=== PATIENT | female | born 1980 | race Caucasian/White ===

== ENCOUNTER 2019-04-08 08:42 | Emergency (ER) | payer BC, SELFPAY ==
[2019-04-08 08:43] VITALS: PULSE 71; RESP 20; TEMP 36.6; O2SAT 100; BMI 28.1
[2019-04-08 08:50] VITALS: BP 132/66; PULSE 67; RESP 16; O2SAT 100
--- NOTE | 2019-04-08 08:53 | EKG12_ITS ---
Test Reason : CP Blood Pressure : / mmHG Vent. Rate : 065 BPM Atrial Rate : 065 BPM P-R Int : 152 ms QRS Dur : 070 ms QT Int : 400 ms P-R-T Axes : 054 050 040 degrees QTc Int : 416 ms Normal sinus rhythm with sinus arrhythmia Normal ECG Confirmed by SIMON SAINI ([id number]), editor city KAYCE CORDERO ([id number]) on 04/13/2019 1:12:29 PM Referred By: MUKESH Confirmed By:SIMON SAINI
--- NOTE | 2019-04-08 08:54 | ED.DCSUM_ITS ---
History of Present Illness Chief Complaint: Chest Pain Informant: Patient Onset: Weeks Timing: Waxes and wanes Current Severity: Moderate Maximum Severity: Moderate Narrative: Patient presents with a several week history of back pain. She states she has pain just medial to her left scapula that wraps up to her left shoulder. Over the past couple of days pain has now progressed down into the left anterior chest. She describes a pressure sensation in her chest. She does have some associated shortness of breath. No cough or recent URI symptoms. No personal or family history of cardiac disease. She does report that she does CrossFit but does not remember specific injury. Past Medical History - Allergies and Home Meds Allergies/Adverse Reactions: Allergies nickel Allergy (Verified 04/08/19 08:49) Rash Primary Care Physician: Kerwin Sandhu MD [STAFF PHYSICIAN] - As soon as possible Prior records reviewed: Yes Past Medical History: - - Reviewed Smoking Status: Former smoker Review of Systems General: Denies: Chills, Fever Eyes: Denies: Visual changes - bilaterally ENT: Denies: Bilateral ear pain Cardiovascular: Reports: Chest pain. Denies: Palpitations, Heart racing Respiratory: Reports: Dyspnea. Denies: Cough Gastrointestinal: Denies: Abdominal pain, Nausea, Vomiting Genitourinary: Denies: Dysuria Musculoskeletal: Reports: Back pain Skin: Denies: Rash Neurological: Denies: Headache, Parasthesia Hematologic: Denies: Easy bruising Allergy: Denies: Uticaria Physical Exam Vital Signs/Narrative: Vital Signs Temp Pulse Resp BP Pulse Ox 04/08/19 08:50 67 16 132/66 H 100 04/08/19 08:43 97.9 F 71 20 H 100 Inital Vital Signs reviewed: Yes General: Well nourished, Well developed Head: Normocephalic ENT: Moist mucous membranes Neck: Supple, Nontender Cardiovascular: Regular rate, Regular rhythm Respiratory: No distress, CTA bilaterally, Chest nontender Abdomen: Soft, Nontender Back: - - Mild tenderness in the left upper thoracic paraspinals. Extremities: Nontender, No edema Skin: Normal color, No rash Neurological: Alert, Oriented x3 Psychological: Normal affect Diagnostic/Tx/Re-eval Impressions Chest X-Ray 04/08/19 08:55 IMPRESSION: Normal x-ray examination of the chest. Electronically Signed: Jean Marie Becerra, at 9:11 EDT , Service support , 04/08/19 08:55 Chest 1 View (Portable) [RAD] Stat Laboratory Results 04/08/19 04/08/19 04/08/19 08:59 08:59 08:59 WBC 7.1 RBC 5.08 Hgb 13.4 Hct 41.8 MCV 82.3 MCH 26.4 L MCHC 32.1 RDW Std Deviation 39.9 RDW Coeff of Crow 13.4 Plt Count 258 MPV 10.5 Immature Gran % (Auto) 0.300 Neut % (Auto) 55.9 Lymph % (Auto) 33.2 Treasure % (Auto) 8.6 Eos % (Auto) 1.4 Baso % (Auto) 0.6 Absolute Neuts (auto) 4.0 Absolute Lymphs (auto) 2.37 Nucleated RBC % 0 D-Dimer Quant (PE/DVT) Cancelled Sodium 142 Potassium 4.1 Chloride 109 H Carbon Dioxide 26.0 Anion Gap 7 BUN 14 Creatinine 0.74 Estim Creat Clear Calc 101.22 Est GFR (MDRD) Af Amer 113 Est GFR (MDRD) Non-Af 94 BUN/Creatinine Ratio 18.9 Glucose 79 Calcium 9.0 Troponin I < 0.015 Serum , Qual 04/08/19 04/08/19 08:59 09:17 WBC RBC Hgb Hct MCV MCH MCHC RDW Std Deviation RDW Coeff of Rcow Plt Count MPV Immature Gran % (Auto) Neut % (Auto) Lymph % (Auto) [place] % (Auto) Eos % (Auto) Baso % (Auto) Absolute Neuts (auto) Absolute Lymphs (auto) Nucleated RBC % D-Dimer Quant (PE/DVT) < 0.27 L Sodium Potassium Chloride Carbon Dioxide Anion Gap BUN Creatinine Estim Creat Clear Calc Est GFR (MDRD) Af Amer Est GFR (MDRD) Non-Af BUN/Creatinine Ratio Glucose Calcium Troponin I Serum , Qual NEGATIVE - EKG Initial EKG Interpretation: Sinus Rhythm - Sinus at 65 with no acute ischemia. - Medical Decision Making Patient was given aspirin on arrival. EKG and blood work are unremarkable. Chest x-ray is normal. Test results are discussed with the patient. My suspicion is that she has spasm and strain to the left thoracic paraspinal muscles. Over the last several days this has moved to more superior levels, now catching the nerves that are wrapping around her shoulder and onto her chest. She will be treated with naproxen and Flexeril. Patient also states that she has had increased anxiety recently. She states this is been an ongoing issue. She believes she may need to be started on Lexapro or some similar medication. I advised her that this typically needs to be started by her primary care physician as it does take quite a while to start working and she may have some labs that need to be monitored. She will be given a few tabs of Ativan to use as needed for anxiety until she can be seen. She is referred to Dr. Sandhu to establish primary care. ED Disposition - Plan for ED Patient: Disposition: Home or Assisted Living Diagnosis: Atypical chest pain, Upper back strain Instructions: CHEST PAIN, NonCardiac, Back Sprain/Strain, Anxiety Reaction Prescriptions: Lorazepam [Ativan] 0.5 mg PO TID PRN #10 tablet PRN Reason: Anxiety cycloBENZAPRine HCl [Flexeril] 10 mg PO TID PRN #20 tab PRN Reason: Muscle Spasm Prescription Printed Naproxen [Naprosyn] 500 mg PO BID PRN PRN #20 tab PRN Reason: Pain Score 1-10/10 Prescription Printed Referrals: Kerwin Sandhu MD [STAFF PHYSICIAN] - As soon as possible
--- NOTE | 2019-04-08 08:55 | RAD_ITS ---
STUDY: X-RAY CHEST REASON FOR EXAM: Female, 38 years old. Chest pressure. TECHNIQUE: Single AP portable view of the chest. COMPARISON: None. FINDINGS: EKG electrodes are seen. The lungs are clear and expanded. There is no demonstrated pleural abnormality. Normal size heart. Normal mediastinum and lisa. Normal visualized pulmonary arteries. Normal visualized aortic arch and descending thoracic aorta. Normal visualized thoracic spine. Normal visualized ribs, clavicles, and shoulders. There is no demonstrated abnormality of the visualized soft tissue structures of the upper abdomen. RAD/Chest 1 View (Portable) IMPRESSION: Normal x-ray examination of the chest. Electronically Signed: Jean Marie Becerra, at 9:11 EDT , Service support ,
[2019-04-08 09:06] LABS: Absolute Lymphocyte Count 2.37 X10^3/uL (0.83-4.51); Basophil# 0.04 X10^3/uL; Basophil% 0.6 % (0-1); Eosinophils% 1.4 % (0-5); Hematocrit 41.8 % (37-47); Hemoglobin 13.4 g/dL (12.0-15.0); Lymphocyte # 2.37 X10^3/ul (4.0); Lymphocyte % 33.2 % (19-41); Mean Corp Hgb Conc 32.1 g/dL (32-36); Mean Corpuscular Hgb 26.4 pg (27.0-32.0); Mean Corpuscular Volume 82.3 fL (81-99); Mean Platelet Vol. 10.5 fl (6.2-12.0); Monocyte# 0.61 X10^3/uL; Monocyte% 8.6 % (0-10); NRBC Flagged by Analyzer 0 % (0-5); Neutrophil # 3.99 X10^3/uL (2.7-7.7); Neutrophil % 55.9 % (47-70); Platelet Count 258 K/mm3 (150-450); RBC Distribution Width CV 13.4 % (11.6-14.6); RBC Distribution Width SD 39.9 fl (35.1-43.9); Red Blood Count 5.08 M/mm3 (4.2-5.4); White Blood Count 7.1 K/mm3 (4.4-11.0)
[2019-04-08] MEDS: Aspirin 81 MG TAB.CHEW 324 MG PO (09:09)
[2019-04-08] MEDS: 0.9% Normal Saline 1,000 ML 150 ML IV (09:10)
[2019-04-08 09:11] VITALS: O2SAT 98
[2019-04-08 09:26] LABS: Anion Gap 7 (5-15); BUN 14 mg/dL (7-18); BUN/Creat Ratio 18.9 RATIO (10-20); Chloride 109 mmol/L (98-107); Creatinine, Serum 0.74 mg/dL (0.55-1.02); EST Glomerular Filtration Rate 94 mL/min (>60); Est Glom Filt Rate - Afr Amer 113 mL/min (>60); Estimated Creatinine Clearance 101.22 ml/min; Glucose 79 mg/dL (74-106); Potassium 4.1 mmol/L (3.5-5.1); Sodium Level 142 mmol/L (136-145)
[2019-04-08 09:28] LABS: Internal QC Validated? YES +Cl - CLEAR BKGD; Pregnancy, Serum, hCG Quali. NEGATIVE Negative
[2019-04-08 09:34] LABS: D-Dimer Quantitative (DVT/PE) < 0.27 FEU/ug/m (0.27-0.49)
[2019-04-08 10:04] VITALS: BP 113/74; PULSE 62; RESP 15; O2SAT 99
== END 2019-04-08 10:05 | disposition home or self-care (01) ==
PROVIDERS: Emergency Provider Emergency Medicine
DX: R07.89 Other chest pain (principal); S29.012A Strain of muscle and tendon of back wall of thorax, initial encounter; X58.XXXA Exposure to other specified factors, initial encounter; F41.9 Anxiety disorder, unspecified; Z87.891 Personal history of nicotine dependence
CPT/HCPCS: 71045; 80048; 84484; 84703; 85025; 85379; 93005; 99285

== ENCOUNTER → 2020-07-18 15:33 | Outpatient (CLI) | payer BC, SELFPAY | PROVIDERS: PCP Family Medicine; Referring Provider Family Medicine; Visit Provider Family Medicine | DX: B34.9 Viral infection, unspecified (principal) | CPT/HCPCS: 87635; U0005; U0003 ==

== ENCOUNTER → 2020-12-07 10:10 | Outpatient (CLI) | payer BC, SELFPAY ==
--- NOTE | 2020-12-07 10:16 | RAD_ITS ---
STUDY: X-RAY CHEST REASON FOR EXAM: Female, 40 years old. CHEST PRESSURE TECHNIQUE: PA and lateral views of the chest. COMPARISON: Comparison is made with prior examination dated 04/08/2019. FINDINGS: Hyperinflation. The lungs are clear. The lungs are clear and expanded. There is no demonstrated pleural abnormality. Normal size heart. Normal mediastinum and lisa. Normal visualized pulmonary arteries. Normal visualized aortic arch and descending thoracic aorta. Normal visualized thoracic spine. Normal visualized ribs, clavicles, and shoulders. There is no demonstrated abnormality of the visualized soft tissue structures of the upper abdomen. RAD/Chest PA and Lateral IMPRESSION: Hyperinflation. The lungs are clear. Electronically Signed: Jean Marie Becerra MD at 14:12 EDT , Service support ,
[2020-12-07 13:11] LABS: Thyroid Stim Hormone (TSH) 1.02 uIU/mL (0.358-3.74)
== END ==
PROVIDERS: PCP Family Medicine; Referring Provider Family Medicine; Visit Provider Family Medicine
DX: R53.83 Other fatigue (principal); R07.89 Other chest pain
CPT/HCPCS: 36415; 71046; 84443

== ENCOUNTER → 2022-11-28 | Outpatient (CLI) | payer OTHER, SELFPAY ==
[2022-11-28 12:34] LABS: Absolute Lymphocyte Count 1.93 X10^3/uL (0.83-4.51); Absolute Neutrophil Count 3.5 X10^3/uL (2.0-7.7); Basophil# 0.04 X10^3/uL; Basophil% 0.7 % (0-1); Eosinophil# 0.07 X10^3/uL; Eosinophils% 1.2 % (0-5); Hematocrit 42.2 % (37-47); Hemoglobin 13.3 g/dL (12.0-15.0); Lymphocyte # 1.93 X10^3/ul (0.83-4.51); Lymphocyte % 32.3 % (19-41); Mean Corp Hgb Conc 31.5 g/dL (32-36); Mean Corpuscular Hgb 26.7 pg (27.0-32.0); Mean Corpuscular Volume 84.6 fL (81-99); Monocyte# 0.47 X10^3/uL; Monocyte% 7.9 % (0-10); NRBC Flagged by Analyzer 0 % (0-5); Neutrophil # 3.46 X10^3/uL (2.7-7.7); Neutrophil % 57.7 % (47-70); Platelet Count 296 K/mm3 (150-450); RBC Distribution Width CV 12.9 % (11.6-14.6); RBC Distribution Width SD 39.7 fl (35.1-43.9); Red Blood Count 4.99 M/mm3 (4.2-5.4)
[2022-11-28 12:56] LABS: AST(SGOT) 27 U/L (15-37); Alanine Aminotransfer ALT/SGPT 49 U/L (13-56); Albumin, Serum 3.7 g/dL (3.2-5.0); Alkaline Phosphatase 39 U/L (45-117); Anion Gap 6 (5-15); BUN 15 mg/dL (7-18); BUN/Creat Ratio 18.4 RATIO (10-20); Calcium,Total 9.3 mg/dL (8.5-10.1); Chloride 105 mmol/L (98-107); Cholesterol 223 mg/dL (200); Creatinine, Serum 0.82 mg/dL (0.55-1.02); EST Glomerular Filtration Rate 82 mL/min (>60); Est Glom Filt Rate - Afr Amer 99 mL/min (>60); Globulin 3.8 g/dL (2.2-4.2); Glucose 92 mg/dL (74-106); High Density Lipoprotein 60 mg/dL; Protein, Total 7.5 g/dL (6.4-8.2); Sodium Level 137 mmol/L (136-145); Triglycerides 79 mg/dL; Very Low Density Lipoprotein 16 mg/dL (5-40)
== END | disposition home or self-care (01) ==
LOC: BFHLAB 10:04
PROVIDERS: PCP Family Medicine; Referring Provider Family Medicine; Visit Provider Family Medicine
DX: Z00.00 Encounter for general adult medical examination without abnormal findings (principal); J45.20 Mild intermittent asthma, uncomplicated; L40.9 Psoriasis, unspecified
CPT/HCPCS: 36415; 80053; 80061; 85025

== ENCOUNTER 2023-01-29 18:00 | Outpatient (RCR) | payer OTHER, SELFPAY ==
--- NOTE | 2022-12-16 19:20 | HP.PTEVAL ---
Patient's Visit Information KAYCE MARY is a 42 year old F referred to Physical Therapy by Dr. Gabrielle Youssef MD with a diagnosis of LUMBAR PAIN WITH RADIATION TO HIPS. Date of Evaluation: 12/16/22 Physical Therapist: Quan Casanova, PT, Cert MDT, OCS - Visit Plan Frequency: 2x /Week Duration: 4 Weeks Plan: PT INTERVTIONS MAGGIE EX'S ,MANUAL THERAPY ,DLS ,FLEXABLITY AND MODALITIES - Subjective This 42 y/o female presents to physical therapy lumbar radiculopathy. Patient has had intermittent lumbar pain in past ~ 2 years. These symptoms progressively worse past several years. Seen DR recommended PT ,anti-inflammatory. Pain described as ache. Patient has had no diagnostics . Patient pain lumbar radicular left lateral leg. Aggravating bending ,lifting ,sitting ,.Alleviating factors walking ,standing . Coughing/sneezing + Bowel/bladder-. Denies paresthesia/tingling -. Patient has seen chiropractor. Patient does CrossFit. Patient goals to have no pain. SOCAIL : . 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 GAIT: reciprocal pattern. NEURO: denies paresthesia/tingling , reflexes L3-4 ,L4-5,L;5-S1 2/3. PALPATION: unremarkable. LUMBAR ROM: flexion mod loss ,extension min loss ,side glides min loss. FLEXABLITY: hamstrings min loss. MMT: quads/hams 4/5 ,hip flexion 4/5 ,ankle 5/5 - Special Tests L/S Slump test left side: Negative L/S Slump test right side: Negative L/S Left Straight Leg Raise: Positive L/S Right Straight Leg Raise: Negative Lumbar Standing: Flexion - Mechanical Response: No effect Lumbar Standing: Flexion - Symptoms During Testing: Increases Lumbar Standing: Flexion - Symptoms After Testing: Worse Lumbar Standing: Extension - Mechanical Response: No effect Lumbar Standing: Extension - Symptoms During Testing: Increases Lumbar Standing: Extension - Symptoms After Testing: No worse Lumbar Standing: Right Side Glides - Mechanical Response: No effect Lumbar Standing: Right Side [place] - Symptoms During Testing: No effect Lumbar Standing: Right Side [place] - Symptoms After Testing: No effect Lumbar Standing: Left Side [place] - Mechanical Response: No effect Lumbar Standing: Left Side [place] - Symptoms During Testing: No effect Lumbar Standing: Left Side [place] - Symptoms After Testing: No effect Lumbar Lying: Flexion - Mechanical Response: No effect Lumbar Lying: Flexion - Symptoms During Testing: Increases Lumbar Lying: Flexion - Symptoms After Testing: Worse Lumbar Lying: Extension - Mechanical Response: No effect Lumbar Lying: Extension - Symptoms During Testing: Decreases Lumbar Lying: Extension - Symptoms After Testing: Better - Balance/Special Test Scores Oswestry Low Back Score: 21 - Goals Goal 1:: This patient to be I with HEP Goal Time Frame: 4-6 Weeks Goal 2:: Patient improve posture/mechanics 80% of time Goal Time Frame: 4-6 Weeks Goal 3:: Patient to demonstrate 50% improvement with improved function and less pain Goal Time Frame: 4-6 Weeks Goal 4:: Patient to lumbar ROM for function of recovery to lift correctly Goal Time Frame: 4-6 Weeks Goal 5:: Patient to improve back oswestry score by 5 points to improve function. Goal Time Frame: 4-6 Weeks - Rehabilitation Potential Physical Therapy Diagnosis: This patient has possible lumbar derangement with possible disc involvement symptoms worse with flexion affects bending and lifting worse extension better and correction of posture , worse with positioning and motion testing thus benefit from skilled PT Rehabilitation Potential: Good - Anticipated Interventions Patient/Client Instruction: Educate patient on: Condition, Plan of Care For the Purpose of:: To decrease pain, To increase ROM, To improve muscle performance and motor function, To improve ability to perform ADL's, To increase tolerance to activity/condition/position, To improve performance and independence with ADL's, To improve ability of physical actions for home/community/work/leisure, To improve health of tissue, To decrease soft tissue restriction, To increase flexibility/ROM, To reduce risk of recurrence Therapeutic Exercise to Include: Strength training, Balance training, Body mechanics, Postural training, Flexibilty training, Maggie Exercises For the Purpose of:: To decrease pain, To increase ROM, To improve muscle performance and motor function, To improve ability to perform ADL's, To increase tolerance to activity/condition/position, To improve ability of physical actions for home/community/work/leisure, To improve health of tissue, To decrease soft tissue restriction, To increase flexibility/ROM, To prevent re-injury Manual Therapy Techniques to Include: Mobilization Comment: LUMBAR For the Purpose of:: To decrease pain, To increase ROM, To improve health of tissue, To decrease soft tissue restriction TENS: Yes IF ES: Yes Cryotherapy (ice pack, ice massage): Yes Thermo therapy (hot pack): Yes Ultrasound (thermal/non thermal): Yes For the Purpose of:: To decrease pain, To improve nutrient delivery to tissue, To increase oxygenation perfusion, To improve gait and locomotor functions, To improve health of tissue Thank you for the opportunity to evaluate your patient. For Medicare and Medicare HMO plans, please review the plan of care and approve it. It will need to be FAXED BACK to us at [phone] for Medicare purposes. For Medicare only, by signing this I certify the plan of care. Please let me know if there are questions or concerns regarding this plan of care. Physician Signature: Date:
== END 2023-01-29 19:00 | disposition home or self-care (01) ==
LOC: PT 18:00
PROVIDERS: PCP Family Medicine; Referring Provider Family Medicine; Visit Provider Family Medicine
DX: M54.50 Low back pain, unspecified (principal)
CPT/HCPCS: 97014; 97035; 97110; 97161; G0283

== ENCOUNTER 2023-05-07 17:30 | Outpatient (RCR) | payer OTHER, SELFPAY ==
--- NOTE | 2023-04-16 17:16 | HP.PTEVAL ---
Patient's Visit Information Visit Information Visit Information: KAYCE MARY is a 42 year old F referred to Physical Therapy by Dr. Marcell Oneil DO with a diagnosis of LOW BACK PAIN. Date of Evaluation: 04/16/23 Physical Therapist: Quan Casanova PT, Cert MDT, OCS Visit Plan Frequency: 2x /Week Duration: 4 Weeks Plan: PT INTERVETIONS MAGGIE EX'S, MANUAL THERAPY ,DLS ,POSTURAL EX'S AND MODALTIES Subjective Subjective: This 42 female presents to physical therapy with low back pain. Patient has had ~ 1 year . Tried PT couple session PT did get some better. Pain return worse ~ 3weeks ago. Patient has no MRI. Prescribed anti-inflammatory does not . Patient has not tried no interventions. Patient made some adjustments at work with Maggie roll and standing desk. Aggravating factors walking/lifting /bending /sitting . Alleviation factors extension . and rest. Denies paresthesia/tingling . Location of pain symmetrical lumbar changes. Pain described as sharp pain stabbing. Coughing/sneezing +. Bowel/bladder - . No abnormal night pain ,but pain affects sleeping. Patient pain pain affects QOL and function. Patient goals to have no pain. 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 SOCIAL: Pain Bilateral Back: Pain Intensity (Out of 10): 6 Pain Intensity Range: 10 Objective Objective: POSTURE : mild forward posture GAIT: reciprocal pattern NEURO: denies paresthesia/tingling ,reflexes L3-4,L4-5 ,L5-S1 1/3 PALAPTION: tender LS L5-S1 SYMMTRIES: align FLEXABLITY: hamstrings MIN tight MMT: quads/hams 4/5 ,hip flexion 4-/5 ,GTE 4/5 ,DF 4/5 LUMBAR ROM: flexion mod loss ,extension severe loss side glides min loss Special Tests L/S Slump test left side: Negative L/S Slump test right side: Negative L/S Left Straight Leg Raise: Negative L/S Right Straight Leg Raise: Positive Lumbar Standing: Flexion - Mechanical Response: No effect Lumbar Standing: Flexion - Symptoms During Testing: Increases Lumbar Standing: Flexion - Symptoms After Testing: Worse Lumbar Standing: Extension - Mechanical Response: No effect Lumbar Standing: Extension - Symptoms During Testing: Increases Lumbar Standing: Extension - Symptoms After Testing: Worse Lumbar Standing: Right Side Glides - Mechanical Response: No effect Lumbar Standing: Right Side [place] - Symptoms During Testing: No effect Lumbar Standing: Right Side [place] - Symptoms After Testing: No effect Lumbar Standing: Left Side [place] - Mechanical Response: No effect Lumbar Standing: Left Side [place] - Symptoms During Testing: No effect Lumbar Standing: Left Side [place] - Symptoms After Testing: No effect Lumbar Lying: Flexion - Mechanical Response: No effect Lumbar Lying: Flexion - Symptoms During Testing: Increases Lumbar Lying: Flexion - Symptoms After Testing: Worse Lumbar Lying: Extension - Mechanical Response: No effect Lumbar Lying: Extension - Symptoms During Testing: Increases Lumbar Lying: Extension - Symptoms After Testing: Centralized Balance/Special Test Scores Oswestry Low Back Score: 28 Goals Goal 1:: Patient to be I with HEP for back pain Goal Time Frame: 4-6 Weeks Goal 2:: Patient to improve posture/body mechanics 80% of the time Goal Time Frame: 4-6 Weeks Goal 3:: Patient to improve lumbar ROM for function of recovery to put on shoes Goal Time Frame: 4-6 Weeks Goal 4:: Patient to demonstrate 50% improvement with less pain and improved function Goal Time Frame: 4-6 Weeks Goal 5:: Patient to improve back oswestry score by 5 points or > to improve QOL Goal Time Frame: 4-6 Weeks Rehabilitation Potential Physical Therapy Diagnosis: This patient appears lumbar disc HNP with with decrease ROM lumbar ,function of recovery , pain with positioning , and motion testing thus benefit from skilled PT Rehabilitation Potential: Good Anticipated Interventions Patient/Client Instruction: Educate patient on: Condition and Plan of Care For the Purpose of:: To decrease pain, To increase ROM, To improve muscle performance and motor function, To improve ability to perform ADL's, To increase tolerance to activity/condition/position, To improve ability of physical actions for home/community/work/leisure, To improve health of tissue, To decrease soft tissue restriction, To increase flexibility/ROM and To reduce risk of recurrence Therapeutic Exercise to Include: Strength training, Body mechanics, Postural training, Flexibilty training, Dynamic Lumbar Stabilization and Maggie Exercises For the Purpose of:: To decrease pain, To increase ROM, To improve ability to perform ADL's, To increase tolerance to activity/condition/position, To improve ability of physical actions for home/community/work/leisure, To decrease soft tissue restriction, To increase flexibility/ROM and To reduce risk of recurrence Manual Therapy Techniques to Include: Mobilization For the Purpose of:: To decrease pain, To increase ROM, To improve health of tissue and To decrease soft tissue restriction TENS: Yes IF ES: Yes Cryotherapy (ice pack, ice massage): Yes Thermo therapy (hot pack): Yes For the Purpose of:: To decrease pain, To increase ROM, To improve nutrient delivery to tissue, To increase oxygenation perfusion, To improve health of tissue and To decrease soft tissue restriction Text: Thank you for the opportunity to evaluate your patient. For Medicare and Medicare HMO plans, please review the plan of care and approve it. It will need to be FAXED BACK to us at [phone] for Medicare purposes. For Medicare only, by signing this I certify the plan of care. Please let me know if there are questions or concerns regarding this plan of care. Physician Signature: Date:
== END 2023-05-07 19:00 | disposition home or self-care (01) ==
LOC: PT 17:30
PROVIDERS: PCP Family Medicine; Visit Provider Family Medicine
DX: M54.50 Low back pain, unspecified (principal)
CPT/HCPCS: 97014; 97110; 97162; G0283

== ENCOUNTER → 2023-12-02 | Outpatient (CLI) | payer OTHER, SELFPAY ==
[2023-12-02 12:47] LABS: Cholesterol 232 mg/dL (200); Glucose 95 mg/dL (74-106); High Density Lipoprotein 60 mg/dL; Triglycerides 128 mg/dL; Very Low Density Lipoprotein 26 mg/dL (5-40)
== END | disposition home or self-care (01) ==
LOC: BFHLAB 09:36
PROVIDERS: PCP Family Medicine; Referring Provider Family Medicine; Visit Provider Family Medicine
DX: Z00.00 Encounter for general adult medical examination without abnormal findings (principal)
CPT/HCPCS: 36415; 80061; 82947

== ENCOUNTER → 2025-01-06 | Outpatient (CLI) | payer OTHER, SELFPAY ==
[2025-01-06 18:21] LABS: Cholesterol 227 mg/dL (<=200); Glucose 81 mg/dL (70-99); High Density Lipoprotein 57 mg/dL; Low Density Lipoprotein Calc. 148 mg/dL; Triglycerides 108 mg/dL; Very Low Density Lipoprotein 22 mg/dL (5-40); cholesterol:hdl ratio screen 3.98
[2025-01-10 17:08] LABS: Anti-Nuclear Antibody Test Negative (.)
== END | disposition home or self-care (01) ==
LOC: BFHLAB 15:00
PROVIDERS: PCP Family Medicine; Visit Provider Family Medicine
DX: Z00.00 Encounter for general adult medical examination without abnormal findings (principal); I73.00 Raynaud's syndrome without gangrene
CPT/HCPCS: 36415; 80061; 82947; 86038

== ENCOUNTER → 2025-05-31 | Outpatient (CLI) | payer OTHER, SELFPAY ==
--- NOTE | 2025-05-31 09:31 | RAD_ITS ---
PROCEDURE: L/S SPINE MIN 4 VIEWS 05/31/2025 REASON FOR EXAM: LUMBAGO WITH SCIATICA TECHNIQUE: Procedure Code: RADSPLS Modality: DX Procedure: L/S SPINE MIN 4 VIEWS COMPARISON: None FINDINGS: Lumbar spine five views. 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 Vertebral body height is maintained. There is loss of disc height at L5- S1. The facet articulations are aligned. An IUD is noted in the mid pelvis. Mineralization is normal. 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 There is loss of disc height at L5-S1. Reading Location: [facility]
== END | disposition home or self-care (01) ==
LOC: MTRAD 09:19
PROVIDERS: PCP Family Medicine; Referring Provider Nurse Practitioner Family; Visit Provider Nurse Practitioner Family
DX: M54.50 Low back pain, unspecified (principal)
CPT/HCPCS: 72110